=== PATIENT | female | born 1970 | race Caucasian/White ===

== ENCOUNTER → 2016-12-15 | Outpatient (CLI) | payer OTHER ==
[2016-12-15 14:25] LABS: HEMOGLOBIN 14.4 g/dL (12.2-16.2); LYMPH # 2.4 K/mm3 (0.7-4.5); LYMPH % 45.2 % (10-50.0)
[2016-12-15 15:04] LABS: BILIRUBIN, INDIRECT 0.28 mg/dL (0-0.9); BUN 13 mg/dL (7-18)
[2016-12-15 15:06] LABS: GFR (ESTIMATED) 59 ML/MIN (59-)
== END ==
LOC: MAY-LAB 13:26
PROVIDERS: Nurse Practitioner Family
DX: R00.2 Palpitations (principal); I10 Essential (primary) hypertension; E78.5 Hyperlipidemia, unspecified